=== PATIENT | male | born 1965 | race Caucasian/White ===

== ENCOUNTER → 2024-07-30 | Outpatient (CLI) | payer BC | LOC: RAD 15:58 | DX: M50.10 Cervical disc disorder with radiculopathy, unspecified cervical region (principal) ==

== ENCOUNTER → 2024-07-31 | Outpatient (CLI) | payer BC | LOC: RAD 08:53 | DX: M50.122 Cervical disc disorder at C5-C6 level with radiculopathy (principal); M50.123 Cervical disc disorder at C6-C7 level with radiculopathy; M48.02 Spinal stenosis, cervical region; M89.38 Hypertrophy of bone, other site; K21.9 Gastro-esophageal reflux disease without esophagitis ==

== ENCOUNTER → 2024-09-21 | Day surgery (SDC) | payer BC ==
[~2024-09-21] MED LIST: Lidocaine PF 2% (20 MG/ML) 2 ML VIAL ONE
== END ==
LOC: MSO 07:59
DX: Z12.11 Encounter for screening for malignant neoplasm of colon (principal)
CPT/HCPCS: 00812; J2704; J7120